=== PATIENT | female | born 1990 | race Two or more races ===

== ENCOUNTER 2021-04-07 16:05 | Emergency (ER) | payer MEDICAID, OTHER ==
[~2021-04-07] VITALS: Ht 162.6 cm; Wt 61.2 kg
[2021-04-07 16:07] VITALS: BP 145/74
== END 2021-04-07 17:14 | disposition left against medical advice (07) ==
LOC: ER 16:05
DX: R00.2 Palpitations (principal); R42 Dizziness and giddiness; Z53.21 Procedure and treatment not carried out due to patient leaving prior to being seen by health care provider